=== PATIENT | female | born 1940 | race Caucasian/White ===

== ENCOUNTER 2019-08-14 05:34 | Day surgery (SDC) | payer MEDICARE, OTHER, SELFPAY ==
--- NOTE | 2019-07-26 12:24 | HP.PCM_ITS ---
History and Physical History and Physical Patient Name: Alva Rehman : 1940 From: FRED STEVENSON PA-C DATE OF SURGERY: 08/14/2019 SCHEDULED PROCEDURE: right middle finger trigger release HISTORY OF PRESENT ILLNESS: Preoperative history and physical exam was performed on July 26, 2019. This is a 79-year-old female whose been having ongoing locking and catching with the right middle finger for the past 8 months. Patient has had previous trigger finger releases in the past by Dr. Canseco. Patient did attempt a corticosteroid injection which she had initial relief but the catching and pain returned. She states this is affecting her activities of daily living. She is right-hand dominant. Pain can reach a size a 3-4/10. She denies numbness and tingling. After failing conservative measures and discussing treatment options with Dr. Misael Crowe, the patient does wish to proceed with a right middle finger trigger release. Patient has a medical history pertinent for hypertension, gastroesophageal reflux disease, and stroke. She currently denies chest pain, shortness of breath, fevers chills, recent infections. REVIEW OF SYSTEMS: ROS: Const: Denies anorexia, change in appetite, fever, hard of hearing, vision problems and weight change. CV: Denies chest pain, heart murmur, irregular heartbeat and peripheral vascular disease. Resp: Denies asthma, cough, pneumonia, sleep apnea, SOB, tuberculosis and wheezing. GI: Denies constipation, diarrhea, difficulty swallowing, heartburn, nausea, bloody stools and vomiting. : Urinary: denies incontinence. Musculo: Denies leg swelling, limp, trouble walking and weakness. Skin: Denies Raynaud's, history of shingles and tattoo. Neuro: Denies ambulatory dysfunction, dizziness, numbness/tingling and tremor. Psych: Denies anxiety, depression, insomnia, mental illness and stress. Christoph/Lymph: Denies anemia, bleeding/bruising tendency and past transfusion. Reviewed, no changes. PAST MEDICAL HISTORY: Advance Care Plan: Other Directive, POA Effective Date: 01/06/2017 PMH: Medical Problems: Arthritis, High Blood Pressure, Acid Reflux, Stroke Accidents: LT Leg Injury - TRIPPED OVER A STOOL Surgical Hx: LT Thumb Trigger Finger Release - (2004) RT Ring Finger Trigger Release - (2004) Knee Arthroscopy RT - 03/30/11 [facility] @ [facility] RT TKR - (01/16/2012) [facility] @ [facility] Colon Resection - (04/2013) 12 INCHES REMOVED Hysterectomy - (04/2013) Fistulas - (04/2013) ONE COLON TO BLADDER ONE COLON TO RECTUM Illostomy (Bag On Intestines) - (04/2013) Reversal Of Illostomy - (11/04/2013) DR CHILDERS Knee Replacement LT - (09/14/2015) [email or web address] Anesthesia Complications: None Assistive Devices: Glasses Reviewed, no changes. SOCIAL HISTORY: SH: Marital: .Occupation: Retired.Work Status: Retired.Hand Dominance: Right- handed. Personal Habits: Smoking: Patient is a former smoker.Cigarette Use: Former Cigarette Smoker.Alcohol: Weekly use.Drug Use: Denies Use.Enjoy Exercising: Daily. Reviewed, no changes. VITALS: Ht: 61 Wt: 170lb Wt k.112 BMI: 32.1 BP: 174/78 Pulse: 68 Resp: 16 T: 97.9 T: 36.6C ALLERGIES: Neosporin - Rash Ultram Percocet Silver - Rash MEDICATIONS: Propranolol HCL ER 120 mg 1 cap PO daily, Losartan Potassium 100mg 1 by mouth every day, Pantoprazole Sodium 40 mg 1 by mouth every day, Aspir-81 81 mg 1po qday, Lipitor 40 mg 1po qday PRE-OP EXAM: General appearance:NORMAL Other: Eyes: Conjunctivae and lids: NORMAL Pupils: ERR Ears, Nose, Mouth, and Throat: NORMAL Other: Inspection of lips, teeth and gums: NORMAL Other: Neck: Examination of neck: no masses noted. Respiratory: Assessment of respiratory effort: NORMAL Other: Auscultation of lungs: clear to auscultation no wheezes, rhonchi or rales. Cardiovascular: Auscultation of heart: regular rate and rhythm, no murmurs, gallops or rubs. Exam of carotid arteries: NORMAL Other: Gastrointestinal: Exam of abdomen: soft, nontender, nondistended bowel sounds present. PHYSICAL EXAMINATION: On exam of the right hand it is cold to touch without erythema or signs of infection. Patient does have active triggering of the right middle finger. There is thickening of the flexor tendon. Patient does have swollen nodular DIP and PIP joints with crepitus on range of motion. Limited range of motion of the DIP and PIP joints secondary to arthrosis. Sensation intact to light touch. Neurovascularly intact. IMAGING STUDIES: Previous x-rays of the right hand reveal stable alignment of the bones joints. There is joint space narrowing of the DIP and MCP joints consistent with arthrosis. IMPRESSION: 1. Right middle finger stenosing tenosynovitis 2. Hypertension 3. Gastroesophageal reflux disease 4. History of stroke PLAN: Dr. Misael Crowe did discuss and review with the patient all treatment options including surgical versus nonsurgical options. Patient does wish to proceed with the above-stated procedure. Potential risks, benefits, and complications of the procedure were discussed in detail including but not limited to , infection, nerve and blood vessel damage, persistent pain, numbness, tingling, paresthesias, blood clot, pulmonary embolism, and requirement for possible further surgery. The patient expressed full understanding and has no further questions for the doctor. Patient does agree to proceed with the above-stated procedure and has signed the surgery consent form. This dictation was created using voice recognition software. Phonetic and/or grammatical errors may exist. ___ I have re-examined the patient. There are no clinical changes since date of exam. ___ See progress notes for changes. ___ Dictated on admission Date: Time: Signature:
[2019-08-14 06:05] VITALS: BP 186/85; PULSE 58; RESP 16; TEMP 36.7; O2SAT 98; BMI 32.9
[2019-08-14] MEDS: Lactated Ringers 1,000 ML 100 ML IV (06:29)
[2019-08-14] MEDS: Cefazolin 1 GM/50 ML BAG IV (07:08)
[2019-08-14] MEDS: Bupivacaine Mpf 0.5% 30 ML VIAL (07:34)
--- NOTE | 2019-08-14 07:35 | OP.PCM_ITS ---
Report of Operation Date of Procedure: 08/14/19 Pre-Operative Diagnosis: Right long trigger finger Post-Operative Diagnosis: Right long trigger finger Surgery/Procedure Performed:: Right long finger A1 thea release Description of Surgical Findings:: Complete release of A1 thea environmental health manager: None Type of Anesthesia:: Block,Butch Anesthesiologist: Pillo Jeter Special Medications: Ancef Estimated Blood Loss (mL): 2 Fluids Replaced: 400 mL crystalloid Description of Procedure: On the day of the procedure patient's right upper extremity was marked in the preoperative area. Patient was brought back to the operating room where placed in the supine position with the right hand on the armboard. A Butch block was administered by anesthesia, tourniquet was placed up at that time. Right hand was prepped in a sterile fashion while the surgeon scrubbed. Upon reentering the room the right upper extremity was draped in a standard orthopedic fashion. Incision was marked out over the third digit. Timeout was called and it was agreed upon the side and site, the procedure to be performed, antibiotic given and patient's identity. Incision was taken at the skin. Scissors were used to bluntly dissect until the A1 thea was identified. A1 thea was incised in a longitudinal fashion and completely released leaving an ulnarly based flap. The third digit was then taken through range of motion and no triggering was noted. Patient was awakened from the light sedation by anesthesia and the finger was actively taken through range of motion multiple times with no triggering. Wound was copiously irrigated out with normal saline. Incision was closed with 3-0 nylon. Xeroform dressing, sterile dressing, compressive dressing were placed tourniquet was let down. Patient was awakened by anesthesia and transferred to PACU for recovery. Postoperative plan: Patient can remove her dressing in 7 days. She'll follow up in 2 weeks for suture removal. She can begin range of motion as tolerated. - Complications No intraoperative complications - Admit VTE Documentation VTE Present on Admission: No VTE Mechan Device Prophylaxis: SCD's VTE Pharm Prophylaxis ordered?: No Reason prophylaxis not ordered:: Treatment Not Indicated
[2019-08-14 07:45] VITALS: BP 155/67; BP 186/85; PULSE 62; RESP 16; TEMP 37.3; O2SAT 95
[2019-08-14 07:50] VITALS: BP 155/72; BP 186/85; PULSE 64; RESP 16; O2SAT 96
[2019-08-14 07:55] VITALS: BP 154/69; BP 186/85; PULSE 63; RESP 16; O2SAT 95
[2019-08-14 08:00] VITALS: BP 144/75; BP 186/85; PULSE 62; RESP 16; TEMP 37.2; O2SAT 95
[2019-08-14 08:29] VITALS: BP 186/85
== END 2019-08-14 08:37 | disposition home or self-care (01) ==
LOC: SDC 05:36 → AC 05:39
PROVIDERS: Family Provider Nurse Practitioner Primary Care; PCP Nurse Practitioner Primary Care; Referring Provider Specialist; Visit Provider Specialist
PROC: (CPT 26055; principal; 2019-08-14 07:05)
DX: M65.331 Trigger finger, right middle finger (principal); M19.041 Primary osteoarthritis, right hand; I10 Essential (primary) hypertension; K21.9 Gastro-esophageal reflux disease without esophagitis; Z79.82 Long term (current) use of aspirin; Z79.899 Other long term (current) drug therapy; Z87.891 Personal history of nicotine dependence; Z86.73 Personal history of transient ischemic attack (TIA), and cerebral infarction without residual deficits
CPT/HCPCS: 26055; J7120

== ENCOUNTER 2021-10-13 11:00 | Outpatient (RCR) | payer MEDICARE, OTHER, SELFPAY ==
--- NOTE | 2021-06-29 14:30 | HP.SP.AD ---
History - History Date of Eval: 06/29/21 Medical Diagnosis (from RX): Aphasia Date of Onset of Diagnosis: 05/14/21 Previous speech therapy: Yes Results: 4 years ago. Patient needed minimal therapy. Recently, she was at [facility] for 10 days then did home health speech therapy. She stated that her speech is 70% better already since April. Other Relevant Medical History/Diagnoses/Surgery: CVA 4 years ago, and again on May 14, 2021. Medications related to this diagnosis: clopidogrel, Atorvastatin, pantoprazael, losoaton, progranolol, hydrolaine. Smoking Status: Former smoker Hx Smoking: Yes - QUIT 50+ YR AGO Hx Tobacco Use: No - Pain Is pain an issue with your current prescribed condition?: No - Personal Occupation: retired teacher Right Hearing Abillity: Normal Left Hearing Abillity: Normal Visual Assistive Devices: Glasses Patients Living Arrangements: With Significant Other Patient Allergies - Allergies Allergies silver Allergy (Verified 08/14/19 06:03) non healing affect NON HEALING AFFECT tramadol HCl [From Ultram] Allergy (Verified 08/14/19 06:03) Rash miconazole nitrate [From Neosporin AF] Adverse Reaction (Verified 08/14/19 06:03) Other MAKES THE SKIN AREA WORSE AFTER USE oxycodone HCl [From Percocet] Adverse Reaction (Verified 08/14/19 06:03) Vomiting Subjective Oral Motor - Subjective Facial Drooping: Right Objective Oral Motor - Oral Status Dentition: WNL - Labial Impairment: Moderate Observation at Rest: Right Droop Closure: WNL Pucker: Moderate Retraction: WFL Alternating Pucker/Retraction: Mild Involuntary Movement noted: No - Lingual Impairment: WNL Protrusion: WNL Retraction: WNL Lateralization: WNL Involuntary Movement: No - Jaw Impairment: WNL Opening: WNL Closing: WNL Involuntary Movement: No - Respiratory Status Respiratory Status: Room Air Objective Cog/Ling/Com - Test Administered Vdncytovs-Ightbyrryd-Iudzdadsbgmfm Assessment Administered: Yes Gobqyqqxl-Bylsjazzth-Vqkgbqynozyxw Assessment: Cognitive ? Linguistic skills were evaluated using patient/family interview, skilled observation and informal evaluation through tasks completed by the patient. - Orientation Orientation: Person, Place, Birthdate, Medical Diagnosis - Answer Yes/No Questions Simple: WNL Complex: WNL - Automatic Sequences Automatic Sequences: WFL - Naming Responsive naming: WNL - Conversational Tasks Conversational Tasks: Moderate - Oral Reading Words: WNL Sentences: Mild - Executive Function Comments Comments: Patient was able to describe a picture with minor grammatical errors. Overall speech is slow and halting. She is able to answer questions but at times rephrases as needed. She can communicate but needs increased time. She demonstrates dysarthria as well. She reported no deficits in receptive skills. Objective Dysarthira/Motor - Speech Intelligibility Phonemes: Moderate Single Words: Mild Sentences: Moderate Conversation: Moderate - Volume Volume: WNL Loudness: Variable loudness - Sounds Sounds in Error: Noted errors on /f,v,s/ as well as s blends, j and ch in conversation. - Consistency w/Multiple Repetitions Words: WFL - Observation Observation of Apraxia of Speech: No Oral Groping for Placement: No Inconsistent Errors: No - Awareness/Strategy Use Uses strategies effectively and consistently to improve intelligibility or listener's understanding of message: Yes Plan - Plan Plan: Speech therapy is warranted for mild expressive aphasia and moderate dysarthria which are negatively impacting her ability to communicate in all situations. - Recommendations Treatment Warranted: Yes - Frequency Frequency: 2x /Week Duration: 4 Weeks Visits in this POC: 8 - Prognosis Prognosis: Good - Goals that are Established: Determination:: Goals will be added/modified as deemed necessary and appropriate. Therapy will be discontinued when results of re-evaluation indicate therapy is no longer needed or lack of progress has been documented. - Goal #1-5 Goal #1: Alva will articulation all speech sounds correctly (including but not limited to /f,v,s/, s blends, j and ch.) with minimal cues from therapist on 4/5 trials on 2/3 consecutive sessions. Goal #2: Alva will produce multisllablic words in structured and unstructured tasks on 4/5 trials on 2/3 consecutive sessions. Goal #3: Alva will answer questions or make comments with one complete sentence with no grammatical errors on 4/5 trials on 2/3 sessions. Education - Patient has Indicated that the Following Identified Educational Needs: None The Patient has indicated that they have no educational or learning abilities that may effect their care.: Yes - Patient Instruction Patient Education: Diagnosis, Treatment Plan, Goals Person Taught: Patient Teaching Method: Discussion Response to teaching: Verbalize understanding, Has Prior Knowledge
--- NOTE | 2021-08-31 15:34 | HP.SP.ADRE ---
Previous/Current Goals - Goals 1-5 Previous Goal #1: Alva will articulation all speech sounds correctly (including but not limited to /f,v,s/, s blends, j and ch.) with minimal cues from therapist on 4/5 trials on 2/3 consecutive sessions. Goal 1 Status: Initially, Patient was able to use /f/ only in structured tasks. In conversation she used bilabial substitution. Noted errors on J as it was a weak sound. She has substitutions for s vs sh. Errors continue on the sound of /f/ today when reading multisyllabic words. If she is not slowly speaking with emphases on articulation then she continues to have errors. GOAL CONTINUES. Previous Goal #2: Alva will produce multisyllabic words in structured and unstructured tasks on 4/5 trials on 2/3 consecutive sessions. Goal 2 Status: Previously: 70% with slow deliberate reading. Currently: 80% of single words today. In sentences today was 75%. GOAL CONTINUES. Previous Goal #3: Alva will answer questions or make comments with one complete sentence with no grammatical errors on 4/5 trials on 2/3 sessions. Goal 3 Status: Patient's speech was slow and halting. She was able to form complete sentences only 25% of the time. She often revised her sentence in attempt to complete words. Currently: 60% with no errors in grammatical sentences. History - History Date of Eval: 06/29/21 Medical Diagnosis (from RX): Aphasia Date of Onset of Diagnosis: 05/14/21 Previous speech therapy: Yes Results: 4 years ago. Patient needed minimal therapy. Recently, she was at [facility] for 10 days then did home health speech therapy. She stated that her speech is 70% better already since April. Other Relevant Medical History/Diagnoses/Surgery: CVA 4 years ago, and again on May 14, 2021. Medications related to this diagnosis: clopidogrel, Atorvastatin, pantoprazael, losoaton, progranolol, hydrolaine. Smoking Status: Former smoker Hx Smoking: Yes - QUIT 50+ YR AGO Hx Tobacco Use: No - Pain Is pain an issue with your current prescribed condition?: No - Personal Occupation: retired teacher Right Hearing Abillity: Normal Left Hearing Abillity: Normal Visual Assistive Devices: Glasses Patients Living Arrangements: With Significant Other Patient Allergies - Allergies Allergies silver Allergy (Verified 08/14/19 06:03) non healing affect NON HEALING AFFECT tramadol HCl [From Ultram] Allergy (Verified 08/14/19 06:03) Rash miconazole nitrate [From Neosporin AF] Adverse Reaction (Verified 08/14/19 06:03) Other MAKES THE SKIN AREA WORSE AFTER USE oxycodone HCl [From Percocet] Adverse Reaction (Verified 08/14/19 06:03) Vomiting Subjective Oral Motor - Subjective Facial Drooping: Right Objective Oral Motor - Oral Status Dentition: WNL - Labial Impairment: Moderate Observation at Rest: Right Droop Closure: WNL Pucker: Moderate Retraction: WFL Alternating Pucker/Retraction: Mild Involuntary Movement noted: No - Lingual Impairment: WNL Protrusion: WNL Retraction: WNL Lateralization: WNL Involuntary Movement: No - Jaw Impairment: WNL Opening: WNL Closing: WNL Involuntary Movement: No - Respiratory Status Respiratory Status: Room Air Objective Cog/Ling/Com - Test Administered Apatdnnwb-Xfkdtmhnwm-Dgnuvcyelxqmo Assessment Administered: Yes Yzwelfoox-Wcgqtermic-Wnlvumznmfnjd Assessment: Cognitive ? Linguistic skills were evaluated using patient/family interview, skilled observation and informal evaluation through tasks completed by the patient. - Orientation Orientation: Person, Place, Birthdate, Medical Diagnosis - Answer Yes/No Questions Simple: WNL Complex: WNL - Automatic Sequences Automatic Sequences: WFL - Naming Responsive naming: WNL - Conversational Tasks Conversational Tasks: Moderate Comments: Alva continues to exhibit expressive aphasia in conversation. She has halting speech at times. She will stop and attempt to revise when unable to say a word. She is able to express wants and needs but not at a typical rate. She reports frustration at her lack of fluent, easy speech. Intermittent anomia continues. She uses aphasia strategies effectively to continue the communication attempt. - Oral Reading Words: WNL Sentences: Mild - Executive Function Comments Comments: Patient was able to describe a picture with minor grammatical errors. Overall speech is slow and halting. She is able to answer questions but at times rephrases as needed. She can communicate but needs increased time. She demonstrates dysarthria as well. She reported no deficits in receptive skills. Objective Dysarthira/Motor - Speech Intelligibility Phonemes: Moderate Single Words: Mild Sentences: Moderate Conversation: Moderate - Volume Volume: WNL Loudness: Variable loudness - Sounds Sounds in Error: Noted errors on /f,v,s/ as well as s blends, j and ch in conversation. - Consistency w/Multiple Repetitions Words: WFL - Observation Observation of Apraxia of Speech: No Oral Groping for Placement: No Inconsistent Errors: No - Awareness/Strategy Use Uses strategies effectively and consistently to improve intelligibility or listener's understanding of message: Yes Plan - Plan Plan: Continued speech therapy is warranted for moderate expressive aphasia secondary to anomia as well as deficits in expressive communication. She has reduced ability to effectively communicate wants and needs. - Recommendations Treatment Warranted: Yes - Frequency Frequency: 2x /Week Duration: 2 Months Visits in this POC: 8 - Prognosis Prognosis: Good - Goals that are Established: Determination:: Goals will be added/modified as deemed necessary and appropriate. Therapy will be discontinued when results of re-evaluation indicate therapy is no longer needed or lack of progress has been documented. - Goal #1-5 Goal #1: Alva will articulation all speech sounds correctly (including but not limited to /f,v,s/, s blends, j and ch.) with minimal cues from therapist on 4/5 trials on 2/3 consecutive sessions. Goal #2: Alva will produce multisyllabic words in structured and unstructured tasks on 4/5 trials on 2/3 consecutive sessions. Goal #3: Alva will answer questions or make comments with one complete sentence with no grammatical errors on 4/5 trials on 2/3 sessions.
--- NOTE | 2021-10-13 11:43 | HP.SP.DC_ITS ---
ST Discharge Summary - Discharged: Discharge: Alva Rehman is discharged from [facility] as of October 13, 2021. She was treated for 17 sessions following her evaluation on 06/29/21. She was treated for anomia and dysarthria following her CVA. Patient needed skilled therapy to focus on articulation skills and production of multisyllable words for effective communication. She initially needed maximal cueing and visual prompting. She was educated on strategies to increase intelligibility which she now can independently use. Her last goal was to create complete sentences. She increased from 25% with slow halting speech to 80-85% with reduced rate also used. She is able to communicate wants and needs effectively at this time. A copy of this discharge summary will be sent to her referring physician. Thank you for allowing me to participate in the care of this patient.
== END 2021-10-13 12:40 | disposition home or self-care (01) ==
LOC: SP 11:00
PROVIDERS: PCP Nurse Practitioner Primary Care; Referring Provider Nurse Practitioner Primary Care; Visit Provider Nurse Practitioner Primary Care
DX: R47.01 Aphasia (principal)
CPT/HCPCS: 92507; 92523